=== PATIENT | female | born 1990 | race Caucasian/White ===

== ENCOUNTER → 2017-05-21 | Outpatient (CLI) | payer BC ==
[~2017-05-21] VITALS: Ht 167.6 cm; Wt 79.5 kg
[~2017-05-21] MED LIST: ADVIL,NUPRIN,M200 MG PO; BUPROPION XL300 MG PO; CIPROFLOXACIN500 M1 PO; DEXTROAMP-AMPHE20 MG PO; ENDOCET 5-3251 EACH PO; Motrin PO; NATALCARE RX1 TABLE1 PO; PREFERA-OB P1 TABLET PO; PRENATAL TABLE1 EAC3 PO; TYLENOL EXTRA500 MG PO
[2017-05-21 15:00] VITALS: BP 109/65
== END | disposition home or self-care (01) ==
LOC: IVINF 11:00
DX: O09.892 Supervision of other high risk pregnancies, second trimester (principal); Z3A.00 Weeks of gestation of pregnancy not specified; Z67.91 Unspecified blood type, Rh negative
CPT/HCPCS: 96372; J2790

== ENCOUNTER 2017-07-20 21:29 | Outpatient (CLI) | payer BC ==
[~2017-07-20] VITALS: Ht 167.6 cm; Wt 86.8 kg
[2017-07-20 21:38] VITALS: BP 113/71
[2017-07-20 22:31] LABS: BASOPHIL (%) 0.4 % (0-1); EOSINOPHIL (%) 1.8 % (0-5); EOSINOPHIL COUNT 0.2 K/uL (0-0.3); HEMATOCRIT 32.1 % (36.0-46.0); HEMOGLOBIN 10.6 G/DL (11.9-15.5); IMMATURE GRANULOCYTE (%) 1.9 % (0.0-0.7); LYMPHOCYTE (%) 20.2 % (15-42); LYMPHOCYTE COUNT 2.3 K/uL (1.0-2.8); MCV 87.7 FL (83-99); MONOCYTE (%) 6.9 % (3-12); MONOCYTE COUNT 0.8 K/uL (0-0.8); NEUTROPHIL (%) 68.8 % (45-76); NEUTROPHIL COUNT 7.8 K/uL (1.8-6.4); PLATELET COUNT 225 K/uL (156-360); RBC DIS.WIDTH-CV 13.7 % (11.8-14.6); RBC DIS.WIDTH-SD 43.7 % (39-53); RED BLOOD COUNT 3.66 M/uL (3.80-5.20); WHITE BLOOD COUNT 11.3 K/uL (4.1-10.2)
[2017-07-20 23:28] LABS: AMPHETAMINE NEGATIVE (500 ng/mL); BARBITURATES NEGATIVE (200 ng/mL); BENZODIAZEPINES NEGATIVE (150 ng/mL); BUPRENORPHINE NEGATIVE (10 ng/mL); COCAINE NEGATIVE (150 ng/mL); METHADONE NEGATIVE (200 ng/mL); METHAMPHETAMINE NEGATIVE (500 ng/mL); OPIATES (MORPHINE) NEGATIVE (100 ng/mL); OXYCODONE NEGATIVE (100 ng/mL); PHENCYCLIDINE NEGATIVE (25 ng/mL); PROPOXYPHENE NEGATIVE (300 ng/mL); THC CANNABINOIDS NEGATIVE (50 ng/mL); TRICYCLIC ANTIDEPRESSANTS NEGATIVE (300 ng/mL)
[2017-07-21 01:01] VITALS: BP 119/65
[2017-07-21 04:06] VITALS: BP 103/63
[2017-07-21 06:51] VITALS: BP 111/69
== END 2017-07-21 08:30 | disposition home or self-care (01) ==
LOC: LDRP-OP 21:29 → 2WEST 21:30 → LDRP-OP 09-14 15:10
PROVIDERS: Advanced Practice Midwife; Obstetrics & Gynecology Obstetrics
DX: O60.03 Preterm labor without delivery, third trimester (principal); Z3A.36 36 weeks gestation of pregnancy
CPT/HCPCS: 59025; 85025; 86850; 86870; 86900; 86901; 86920; G0378; J0702; J7120

== ENCOUNTER 2017-07-22 20:02 | Outpatient (CLI) | payer BC ==
[2017-07-22 20:29] VITALS: BP 118/73
[2017-07-22 21:22] VITALS: BP 116/75
[2017-07-23 00:55] VITALS: BP 90/49
[2017-07-23 04:04] VITALS: BP 102/59
[2017-07-23 06:50] VITALS: BP 117/70
== END 2017-07-23 08:24 | disposition home or self-care (01) ==
LOC: LDRP-OP 20:02 → 2WEST 20:03 → LDRP-OP 09-14 08:46
DX: O47.03 False labor before 37 completed weeks of gestation, third trimester (principal); O99.343 Other mental disorders complicating pregnancy, third trimester; F90.9 Attention-deficit hyperactivity disorder, unspecified type; O34.219 Maternal care for unspecified type scar from previous cesarean delivery; Z3A.36 36 weeks gestation of pregnancy
CPT/HCPCS: 59025; G0378

== ENCOUNTER 2017-07-27 00:43 | Inpatient (IN) | payer BC ==
[~2017-07-27] VITALS: Ht 160 cm; Wt 86.8 kg
[2017-07-27] VITALS (21 sets, daily range): BP systolic 106–121; BP diastolic 58–76
[2017-07-27 02:41] LABS: BASOPHIL (%) 0.4 % (0-1); BASOPHIL COUNT 0.1 K/uL (0-0.1); EOSINOPHIL (%) 1.1 % (0-5); EOSINOPHIL COUNT 0.2 K/uL (0-0.3); HEMATOCRIT 32.4 % (36.0-46.0); IMMATURE GRANULOCYTE (%) 1.6 % (0.0-0.7); LYMPHOCYTE (%) 21.9 % (15-42); LYMPHOCYTE COUNT 2.9 K/uL (1.0-2.8); MCH 29.9 PG (29.0-34.0); MONOCYTE (%) 6.6 % (3-12); MONOCYTE COUNT 0.9 K/uL (0-0.8); NEUTROPHIL (%) 68.4 % (45-76); NEUTROPHIL COUNT 9.1 K/uL (1.8-6.4); PLATELET COUNT 237 K/uL (156-360); RBC DIS.WIDTH-CV 13.8 % (11.8-14.6); RBC DIS.WIDTH-SD 44.1 % (39-53); RED BLOOD COUNT 3.68 M/uL (3.80-5.20); WHITE BLOOD COUNT 13.3 K/uL (4.1-10.2)
[2017-07-27 03:38] LABS: AMPHETAMINE NEGATIVE (500 ng/mL); COCAINE NEGATIVE (150 ng/mL); METHAMPHETAMINE NEGATIVE (500 ng/mL); OPIATES (MORPHINE) NEGATIVE (100 ng/mL); PHENCYCLIDINE NEGATIVE (25 ng/mL); THC CANNABINOIDS NEGATIVE (50 ng/mL)
[2017-07-27 03:39] LABS: BARBITURATES NEGATIVE (200 ng/mL); BENZODIAZEPINES NEGATIVE (150 ng/mL); BUPRENORPHINE NEGATIVE (10 ng/mL); METHADONE NEGATIVE (200 ng/mL); OXYCODONE NEGATIVE (100 ng/mL); PROPOXYPHENE NEGATIVE (300 ng/mL); TRICYCLIC ANTIDEPRESSANTS NEGATIVE (300 ng/mL)
[2017-07-28 06:26] LABS: BASOPHIL (%) 0.4 % (0-1); BASOPHIL COUNT 0.1 K/uL (0-0.1); EOSINOPHIL (%) 1.3 % (0-5); EOSINOPHIL COUNT 0.2 K/uL (0-0.3); HEMOGLOBIN 9.7 G/DL (11.9-15.5); IMMATURE GRANULOCYTE (%) 1.8 % (0.0-0.7); LYMPHOCYTE (%) 20.8 % (15-42); LYMPHOCYTE COUNT 2.8 K/uL (1.0-2.8); MCH 29.8 PG (29.0-34.0); MCHC 33.4 G/DL (30.0-36.0); MCV 89.2 FL (83-99); MONOCYTE COUNT 1.1 K/uL (0-0.8); NEUTROPHIL (%) 67.7 % (45-76); NEUTROPHIL COUNT 9.2 K/uL (1.8-6.4); PLATELET COUNT 210 K/uL (156-360); RBC DIS.WIDTH-CV 13.8 % (11.8-14.6); RBC DIS.WIDTH-SD 44.8 % (39-53); RED BLOOD COUNT 3.25 M/uL (3.80-5.20); WHITE BLOOD COUNT 13.6 K/uL (4.1-10.2)
[2017-07-28 07:01] VITALS: BP 95/50
[2017-07-28 14:49] VITALS: BP 118/71
[2017-07-28 23:41] VITALS: BP 107/61
[2017-07-29 07:26] VITALS: BP 109/63
[2017-07-29] MEDS ORDERED: CAMILA0.35 MG PO (09:57)
[2017-07-29] MEDS ORDERED: FERROUS GLUCON240 MG PO (09:57)
== END 2017-07-29 10:48 | disposition home or self-care (01) | DRG 775 ==
LOC: LDRP-OP 00:43 → 2WEST 00:44 → LDRP-OP 09-14 08:58
PROVIDERS: Advanced Practice Midwife
PROC: 10E0XZZ Delivery of Products of Conception, External Approach (ICD-10-PCS; principal; 2017-07-27)
PROC: 3E033VJ Introduction of Other Hormone into Peripheral Vein, Percutaneous Approach (ICD-10-PCS; 2017-07-27)
PROC: 10907ZC Drainage of Amniotic Fluid, Therapeutic from Products of Conception, Via Natural or Artificial Opening (ICD-10-PCS; 2017-07-27)
DX: O99.344 Other mental disorders complicating childbirth (principal); D62 Acute posthemorrhagic anemia; O99.354 Diseases of the nervous system complicating childbirth; Z37.0 Single live birth; F90.9 Attention-deficit hyperactivity disorder, unspecified type; Z3A.37 37 weeks gestation of pregnancy; O99.214 Obesity complicating childbirth; G43.909 Migraine, unspecified, not intractable, without status migrainosus; O34.219 Maternal care for unspecified type scar from previous cesarean delivery; O12.04 Gestational edema, complicating childbirth; O99.02 Anemia complicating childbirth; E66.9 Obesity, unspecified; O71.89 Other specified obstetric trauma; Z68.33 Body mass index [BMI] 33.0-33.9, adult
CPT/HCPCS: 76815; 85025; 86850; 86870; 86900; 86901; J7120